=== PATIENT | male | born 1955 | race Caucasian/White ===

== ENCOUNTER 2016-11-23 11:09 | Inpatient (IN) | payer MEDICARE, MEDICAID ==
[~2016-11-23] VITALS: Ht 182.9 cm; Wt 75.3 kg
[2016-11-23] VITALS (13 sets, daily range): BP systolic 110–163; BP diastolic 69–82; PULSE 91–115; RESP 18–33; O2SAT 87–97
[~2016-11-23 11:09] MED LIST: ALBU8.5H2 INHALATION; ASPI-973 PO; ATOR20TA PO; CLOP75TA3 PO; IBUP200C PO; IPRA3AMP IH; METO25TA6 PO
--- NOTE | 2016-11-23 11:25 | ED.REPORT ---
HPI-Dyspnea / Wheezing Date of Service Nov 23, 2016 ED Provider: The patient is a 61 year old male with history of COPD who presents to the emergency department complaining of shortness of breath that has been worsening over the last 4 days. He has been using his breathing treatments at home about 4 times per day. He has also noticed a productive cough, chest pain after coughing, subjective fever, and a mild headache. He denies abdominal pain, nausea, vomiting or diarrhea. He had similar symptoms 2 years ago and required admission at that time. Nursing Notes Stated Complaint: CHEST PAIN/SHORTNESS OF BREATH Chief Complaint: Respiratory Complaints Nursing Notes Reviewed: Yes Allergies: Coded Allergies: No Known Allergies (Verified Allergy, Unknown, 05/25/16) Scheduled Aspirin (Aspirin) 81 Mg Tablet 81 MG PO DAILY Atorvastatin (Lipitor) 20 Mg Tablet 20 MG PO DAILY Clopidogrel Bisulfate (Plavix) 75 Mg Tablet 75 MG PO DAILY Ipratropium/Albuterol Sulfate (Iprat-Albut 0.5-3(2.5) mg/3 mL Inhalant Soln) 3 Ml Ampul.neb 3 ML IH Q6 Metoprolol Tartrate (Metoprolol Tartrate) 25 Mg Tablet 25 MG PO BID Scheduled PRN Albuterol HFA (Proair HFA) 8.5 Gm Hfa.aer.ad 2 PUFFS INHALATION Q4H PRN PRN prn Ibuprofen (Ibuprofen) 200 Mg Capsule 200 MG PO QID PRN PRN For Pain General Time Seen by MD: 11:25 Chief Complaint Shortness of breath Hx Obtained From: Patient Arrived By: Walk-in Sudden in Onset?: No Onset Occurred: 4 days ago Symptom Duration: Since onset Quality: Painful Severity: Current: Mild Severity: Maximum: Moderate Recent Healthcare: No recent hospitalization, Recent doctor visit Similar Sx Previous: Yes Past Medical History Past Medical History Prior thymoma, status post surgery chemotherapy radiation Peripheral vascular disease Reports: COPD Past Surgical History Median sternotomy scar secondary to thymoma not cardiac surgery Smoking History Current Every Day Smoker Social History Alcohol Use: "Social" Drug Use: Denies drug use Other Social History: Local resident Ambulatory Status Independent Review of Systems Constitutional: Denies: Chills, Fever Respiratory: Reports: Prod cough, clear, Shortness of breath Cardiovascular: Reports: Chest pain Complete sys rev & neg: except as marked. GI: Denies: Abdominal pain, Diarrhea, Nausea, Vomiting Neurologic: Reports: Headache Physical Exam Initial Vital Signs Vital Signs (First) Date Time Temp Pulse Resp B/P Pulse Ox O2 Delivery O2 Flow Rate FiO2 11/23/16 11:13 36.4 112 22 161/82 89 Room Air 11/23/16 11:41 4 Initial VS: Reviewed Head / Eyes: Atraumatic, Normocephalic, PERRL ENT: Mucous membranes moist, Conjunctiva normal, No scleral icterus Abdomen / GI: Soft, Non-tender, No guarding, No rebound, No distention Extremities: Vascular intact, Neuro intact, No swelling, No tenderness Skin: Warm, Dry, No cyanosis Neurologic: Alert, Oriented, Nonfocal Psychiatric: Mood/affect normal, Behavior normal, Normal thought content General/Constitutional: Awake, Alert, No acute distress, Cooperative Neck: Atraumatic, Supple, No meningismus, Full range of motion, No swelling, Non-tender, No masses Respiratory / Chest: Breath sounds = bilat, No respiratory distress Diminished Breath Sounds: Positive: Decreased bilateral Wheezing / Retractions: Positive: Wheezing moderate Midline sternotomy scar. Tachypneic. Cardiovascular: Heart rate NL, Regular rhythm, Heart sounds NL, No murmurs, No rubs, Peripheral circulation NL Interpretation & Diagnostics Lab Results Interpretation Result Diagram: 11/23/16 1130 11/23/16 1130 Test 11/23/16 11:30 White Blood Count 13.5th/mm3 (3.8-10.1) Red Blood Count 5.32mil/mm3 (4.40-5.80) Hemoglobin 15.1g/dL (13.8-17.2) Hematocrit 44.9% (41.0-50.0) Mean Corpuscular Volume 84.4fL (81-100) Mean Corpuscular Hemoglobin 28.4pg (27.0-35.0) Mean Corpuscular Hemoglobin Concent 33.6% (32.0-37.0) Red Cell Distribution Width 14.8% (12.3-15.4) Platelet Count 186bil/L (150-400) Neutrophils (%) (Auto) 86.4% (40-74) Lymphocytes (%) (Auto) 5.8% (14-46) Monocytes (%) (Auto) 7.4% (4-12) Eosinophils (%) (Auto) 0% (0-5) Basophils (%) (Auto) 0.1% (0-3) Sodium Level 132mEq/L (134-144) Potassium Level 4.5mEq/L (3.5-5.2) Chloride Level 93mEq/L (97-108) Carbon Dioxide Level 21mmol/L (18-29) Blood Urea Nitrogen 11mg/dL (8-27) Creatinine 0.58mg/dL (0.76-1.27) Estimat Glomerular Filtration Rate 151mL/min (>59) Glucose Level 116mg/dL (60-99) Lactic Acid Level 2.1mmol/L (0.4-2.0) Calcium Level 9.2mg/dL (8.5-10.1) Total Bilirubin 0.8mg/dL (0.0-1.2) Aspartate Amino Transf (AST/SGOT) 41U/L (0-50) Alanine Aminotransferase (ALT/SGPT) 20U/L (0-44) Alkaline Phosphatase 99U/L (25-160) Troponin T < 0.010ug/L (0.0-0.011) Pro-B-Type Natriuretic Peptide 3911pg/mL (0-210) Total Protein 7.6g/dL (6.4-8.4) Albumin 4.0g/dL (3.4-5.0) ECG Interpretation ECG Interpretation: Sinus tachycardia with a rate of 109 Time: 11:26 Interpreted by: ED physician X-Ray Chest Interpretation Chest Xray Interpretation: IMPRESSION: Interstitial prominence similar to prior examination and no definite acute cardiopulmonary process. Dictated by: Roger Howard RRA Interpreted: Mikayla Zambrano MD on 11/23/2016 at 11:46 View: Portable, 1 view Interpretation / Wet Read by: Interpret - Radiologist Re-Eval/Medical Decision Med Decision/Clinical Course COPD exacerbation with associated hypoxia. Patient will be admitted. Source of Hx: Old records Re-Evaluation/Progress #1: Time of Eval: 12:52 Re-Evaluation/Progress Note: He is not feeling much better at this time. Re-Evaluation/Progress #2: Time of Eval: 13:30 Re-Evaluation/Progress Note: Rechecked the patient. He is feeling better. He still has wheezing predominately in the left lung. Will road test and get room air O2 sat. Re-Evaluation/Progress #3: Time of Eval: 13:40 Re-Evaluation/Progress Note: The patient was 87 % on room air. Re-Evaluation/Progress #4: Time of Eval: 13:45 Re-Evaluation/Progress Note: Rechecked the patient. Discussed plan for admission. All questions were addressed. Consultation : Referral / Consult Name: Cathy Gonzales MD Consulted With: Hospitalist Requested Call at: 13:45 Call Returned at: 14:05 [facility]: Will see patient, Agrees with eval, Agrees with plan, Accepts admit Counseled Regarding: Diagnosis, Lab results, Need for admission Discharge & Departure Impression: Primary Impression: COPD with acute exacerbation Additional Impression: Acute respiratory failure with hypoxia Disposition: ADMITTED TO HOSPITAL Discharge Condition All VS Reviewed: Yes Condition: Stable Referrals: Reena Bender (PCP) Scribe Attestation Portions of this note were transcribed by Cesilia Timmons. I, Dr. Sahu personally performed the history, physical exam and medical decision-making; I reviewed and confirmed the accuracy of the information in the transcribed note. Signed by: Trini Jo, 11/23/2016 and 1415. copies to: Reena Bender Timothy S DO Nov 23, 2016 11:25 Cesilia Timmons Nov 23, 2016 11:31
[2016-11-23] MEDS ORDERED: MethylprednisoLONE Sodium Succinate 62.5 mg/mL 2 mL Inj IVPUSH ONE (11:30)
[2016-11-23] MEDS ORDERED: Albuterol-Ipratropium 3 mL Inhalation Solution NEB ONE ×2 (11:30→12:55)
[2016-11-23] MEDS ORDERED: 0.9% Sodium Chloride 1,000 ML IV ONE (11:30)
[2016-11-23 11:40] LABS: BASOPHILS % (AUTO) 0.1 % (0-3); EOSINOPHILS % (AUTO) 0 % (0-5); MONOCYTES % (AUTO) 7.4 % (4-12); Mean Corpuscular Hemoglobin 28.4 pg (27.0-35.0); Mean Corpuscular Volume 84.4 fL (81-100); NEUTROPHILS % (AUTO) 86.4 % (40-74); Platelet Count 186 bil/L (150-400)
--- NOTE | 2016-11-23 11:47 | DRSVH ---
PROCEDURE: X-RAY CHEST ONE VIEW, PORTABLE ([id number]) INDICATIONS: SHORTNESS OF BREATH , CHEST PAIN TECHNIQUE: One view of the chest was acquired. COMPARISON: [facility], CR, XR CHEST 2VW, 07/10/2015, 16:25. [facility], CR , CHEST 1VW (PORTABLE), 08/20/2014, 15:07. FINDINGS: Surgical changes and devices: Post median sternotomy. Lungs and pleura: No pleural effusions or pneumothorax. Lungs are clear and interstitium is promine nt. Mediastinum: Mediastinal contours appear normal. Heart size is normal. Bones and chest wall: No suspicious bony lesions. Overlying soft tissues appear unremarkable. IMPRESSION: Interstitial prominence similar to prior examination and no definite acute cardiopulmonar y process. Dictated by: Roger Howard [facility] Interpreted: Mikayla Zambrano MD on 11/23/2016 at 11:46 Transcribed by: XOCHITL on 11/23/2016 at 11:47 Approved by: Mikayla Zambrano MD, PhD on 11/23/2016 at 16:13
[2016-11-23 12:22] LABS: TROPONIN T < 0.010 ug/L (0.0-0.011)
[2016-11-23] MEDS ORDERED: Albuterol 2.5 mg/3 mL Inhalation Solution NEB ONE (12:55)
[2016-11-23] MEDS ORDERED: Ondansetron 2 mg/mL 2 mL Inj IVPUSH PRN (14:10)
[2016-11-23] MEDS ORDERED: Alum-Mag Hydrox-Simeth 30 mL Suspension PO PRN (14:10)
[2016-11-23] MEDS ORDERED: ATOR40TA69 PO (14:35)
[2016-11-23] MEDS ORDERED: levoFLOXacin Inj 750 MG in IV Premix 1 EACH IV ONE (15:15)
[2016-11-23] MEDS ORDERED: Albuterol 1.25 mg/3 mL Inhalation Solution NEB PRN (15:30)
--- NOTE | 2016-11-23 15:35 | PCM.HPMED ---
Subjective Date of Service Nov 23, 2016 Primary Provider: Admitting Physician: Cathy Gonzales MD Primary Care Physician: Reena Bender Attending Physician: Cathy Gonzales MD Chief Complaint: Difficulty breathing, cough and phlegm History of Present Illness: A 61-year-old male with history of CAD s/p stents on aspirin and Plavix, active smoker, COPD not on home O2, never intubated presented with 3-4 days all difficult to breathing, cough, sputum Patient stated that he is was hospitalized last week, stayed with her 1 day , 6 days ago. Patient did not particular feel that he was exposed to flu while he was in the hospital. About 4 days ago, patient started having mild cough, mild difficult to breathing, started using nebulizers and inhalers alternatively. However, symptoms have progressed to the point that sputum got thick and yellow, amount has increased. Patient was not able to breathe [place] with 5-6 times of neb tx at home, eating has decreased with poor appetite for the past 2 days. Patient decided to come to the hospital Patient denied fever, chills, abdominal pain, nausea, vomiting, diarrhea, sick contacts, recent travel, dysuria, frequent urination or urgency Emergency room, initial VS 162/82, 112,89% on RA up to low 90% on 3liters. neb tx three times, solu-medrol 125mg Review of Systems: Pertinent positives as noted in history of present illness. 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 Surgical History Chest surgery for thymoma resection in 2010 Family History Brother has diabetes Father had heart attack Social History Hx Alcohol Use: Yes (SELDOM) Hx Substance Use: No Hx Tobacco Use: Yes Smoking Status: Current Every Day Smoker (1/2 [id number]) Additional Information Lives with Exam Vital Signs Vital Sign - Last Date Time Temp Pulse Resp B/P Pulse Ox O2 Delivery O2 Flow Rate FiO2 11/23/16 13:47 106 32 155/73 91 Nasal Cannula 3 11/23/16 11:13 36.4 Exam NAD, comfortably laying down on the bed Speaks in full sentences, no accessory muscle use Intermittently coughing no JVD, MMM, no LAD RRR, nl s1, s2 no mrg poor air entry, mild diffuse crackles S,ND,NT,normoactive BS+ warm, no edema, pulses 2/2 Lab and Diagnostics Result Diagram: 11/23/16 1130 11/23/16 1130 X-Rays, CTs and MRIs Caution: Report not yet finalized and possibly incomplete! PROCEDURE: X-RAY CHEST ONE VIEW, PORTABLE ([id number]) INDICATIONS: SHORTNESS OF BREATH , CHEST PAIN TECHNIQUE: One view of the chest was acquired. COMPARISON: [facility], CR, XR CHEST 2VW, 07/10/2015, 16:25. [facility], CR, CHEST 1VW (PORTABLE), 08/20/2014, 15:07. FINDINGS: Surgical changes and devices: Post median sternotomy. Lungs and pleura: No pleural effusions or pneumothorax. Lungs are clear and interstitium is prominent. Mediastinum: Mediastinal contours appear normal. Heart size is normal. Bones and chest wall: No suspicious bony lesions. Overlying soft tissues appear unremarkable. IMPRESSION: Interstitial prominence similar to prior examination and no definite acute cardiopulmonary process. Dictated by: Roger Howard RRA Interpreted: Mikayla Zambrano MD on 11/23/2016 at 11:46 Transcribed by: XOCHITL on 11/23/2016 at 11:47 Assessment & Plan A 61-year-old male with history of CAD s/p stents on aspirin and Plavix, active smoker, COPD not on home O2, never intubated presented with 3-4 days of difficult to breathing, cough, sputum acute, active #dyspnea, productive cough, POA, likely COPD exacerbation in the setting of URI( RSV+ in PCR), CXR-no obvious infiltrates. no SIRS but has wbc+, elevated BNP- however given acute episode, less likely CHF exacerbation, although cannot exclude entirely -s/p solu-medrol 125mg, continue 80mg q8h today, change to prednisone tomorrow if pt remains stable -duoneb q4h, albuterol q2 prn. -start O2 supplement, target>95%, given no baseline hypercapnia, -ordered Levaquin 750mg qd for possible atypical PNA, consider to stop tomorrow -TTE ordered, Follow tomorrow chronic, stable #CAD s/p stents, no active chest pain, first trop negative. will get baseline EKG, continue asa/plavix, metoprolol 12.5mg bid #s/p thymoma resection, chemoradiation tx, seminoma s/p chemo, seemed in remission, dispo:Patient will be admitted with inpatient status with expectation of inpatient therapy for more than 2 midnights diet:cardiac dvt ppx:HSQ q12 Full Code Time spent 65min Cathy Gonzales MD Nov 23, 2016 15:35
[2016-11-23] MEDS: Albuterol-Ipratropium 3 mL Inhalation Solution NEB SCH ×3 (15:57→21:01)
--- NOTE | 2016-11-23 16:00 | NUR ---
Admission Patient positive for RSV, on droplet/contact precautions. Patient arrived to unit via gurney. Patient alert and oriented on 3 ltr NC. Patient short of breath at rest. Shortness of breath increasing with talking. Patient changing to 3 point position at times. Unable to lay flat. Reports increasing shortness of breath for several days, home "breathing treatments were not enough" and patient reporting his chest was "aching" at times with effort of breathing. Patient also reporting fever, and productive cough.
[2016-11-23] MEDS: 0.9% Sodium Chloride 1,000 ML IV SCH (16:49)
[2016-11-23] MEDS ORDERED: Influenza (Adult) Vaccine 0.5 mL Syringe IM ONE (17:30)
[2016-11-23 20:34] LABS: APPEARANCE,URINE CLEAR (CLEAR,HAZY); COLOR,URINE YELLOW (YELLOW); OCCULT BLOOD,URINE TRACE (NEGATIVE); UROBILINOGEN,URINE NORMAL (NORMAL)
[2016-11-23] MEDS: Fluticasone 100 mCg Inhaler INHALATION SCH (20:59)
[2016-11-23] MEDS: MethylprednisoLONE Sodium Succinate 62.5 mg/mL 2 mL Inj IVPUSH SCH (20:59)
[2016-11-23] MEDS: Heparin 5,000 Unit/mL Inj SUBQ SCH (21:01)
[2016-11-24] VITALS (14 sets, daily range): BP systolic 113–130; BP diastolic 65–75; PULSE 74–109; RESP 18–26; O2SAT 94–100
[2016-11-24] MEDS: Albuterol-Ipratropium 3 mL Inhalation Solution NEB SCH ×6 (00:39→21:05)
[2016-11-24] MEDS: 0.9% Sodium Chloride 1,000 ML IV SCH ×2 (01:41→12:26)
[2016-11-24] MEDS: MethylprednisoLONE Sodium Succinate 62.5 mg/mL 2 mL Inj IVPUSH SCH (05:07)
[2016-11-24 05:40] LABS: BASOPHILS % (AUTO) 0.1 % (0-3); EOSINOPHILS % (AUTO) 0 % (0-5); Mean Corpuscular Hemoglobin 28.4 pg (27.0-35.0); Mean Corpuscular Volume 85.6 fL (81-100); NEUTROPHILS % (AUTO) 93.2 % (40-74); Platelet Count 161 bil/L (150-400)
[2016-11-24 06:28] LABS: Phosphorus 2.9 mg/dL (2.5-4.9)
[2016-11-24] MEDS: levoFLOXacin Inj 750 MG in IV Premix 1 EACH IV SCH (10:08)
[2016-11-24] MEDS: Heparin 5,000 Unit/mL Inj SUBQ SCH ×2 (10:10→21:23)
[2016-11-24] MEDS: Fluticasone 100 mCg Inhaler INHALATION SCH ×2 (10:12→21:23)
[2016-11-24] MEDS: predniSONE 20 mg Tablet PO SCH (15:39)
--- NOTE | 2016-11-24 16:32 | NUR ---
Social Work: Initial Assessment Data: Pt is a 61 y/o male admitted for COPD exacerbation, hypoxia. Pt's PCP is Dr Bender, pt's insurance is Medicare. Readmit score is 2. SUPERVISOR HARDBOARD met with pt at bedside, role explained. Pt states that he lives in a single story home with his spouse where he uses no DME. Pt states his is his DPOA, SUPERVISOR HARDBOARD requested a copy for hospital. Pt states that he drives, has no HH or SNF history, no LTC or VA benefits, and is not a caregiver for pt. Pt is currently on O2, but is not on O2 at baseline. SUPERVISOR HARDBOARD will continue to follow for possible d/c planning needs. Assessment: Pt who is independent at baseline. Plan: Pt will d/c home via POV when medically stable. Pt is currently on O2, but is not on O2 at baseline. SUPERVISOR HARDBOARD will continue to follow for possible d/c planning needs. JOSEP Gonzalez Addendum: 11/24/16 at 1635 by ABRAHAM PEREZ SS Amended: Links added.
--- NOTE | 2016-11-24 17:01 | NUR ---
Respiratory: Patients lungs have expiratory wheezing . Patient is coughing off and on spasmodically with a small amount of creamy green sputum.He is on 3 liters of oxygen with 02 sats in the 97% range. Patient has been afebrile. He continues to be on droplet and contact precautions for positive RSV results.
--- NOTE | 2016-11-24 19:40 | PCM.PNMED ---
Subjective Date of Service Nov 24, 2016 Subjective No overnight events. Patient without new complaints today. He is not at baseline, still unable to take a full breath. He does not use O2 at baseline. Exam Vital Signs Vital Sign - Last Date Time Temp Pulse Resp B/P Pulse Ox O2 Delivery O2 Flow Rate FiO2 11/24/16 17:37 36.7 95 20 126/66 94 Nasal Cannula 3.00 Intake and Output 11/23/16 11/23/16 11/24/16 Cumulative From/Thru 15:00 23:00 07:00 11/23/16 11:13 - 11/24/16 05:15 Intake Total 1656 ml 600 ml 2256 ml Output Total 500 ml 500 ml Balance 1656 ml 100 ml 1756 ml Intake Oral 480 ml 600 ml 1080 ml IV Total 1176 ml 1176 ml Output Urine Total 500 ml 500 ml # Voids 0 0 # Bowel Movements 0 0 Exam Gen: Lying comfortably at 30degree head tilt HEENT: PERRLA, Anicteric sclerae, moist conjunctivae, and no lid lag. Neck: supple, no JVD Cardio: Regular rate and rhythm with no murmurs, rubs, or gallops appreciated Pulm: b/l air sound, no crackles, no rhonchi, Wheezes throughout. Abd: positive bowel tone. Soft, nontender, nondistended. Extremities: No clubbing, cyanosis, edema, or lymphadenopathy appreciated. Skin: Normal temperature, turgor, and texture; no rash, ulcers, or subcutaneous nodules appreciated. Neuro: Cranial nerves grossly intact. moving equally on all four limbs. Psyc: Normal mood and affect. AoX3 IVs and Medications IV Fluids NS 60cc/hr Lab and Diagnostics Result Diagram: 11/24/1631 11/24/1631 X-Rays, CTs and MRIs PROCEDURE: X-RAY CHEST ONE VIEW, PORTABLE IMPRESSION: Interstitial prominence similar to prior examination and no definite acute cardiopulmonary process. Dictated by: Roger DUPREE Interpreted: Mikayla Zambrano MD on 11/23/2016 at 11:46 Transcribed by: XOCHITL on 11/23/2016 at 11:47 Assessment & Plan Patient is a 61yom with history of CAD s/p stents on aspirin and Plavix, active smoker, COPD not on home O2, never intubated presented with 3-4 days of difficult to breathing, cough, sputum. Admitted for RSV, possible bacterial pneumonia. Present on admission, active Dyspnea -- Likely due to COPD exacerbation -- Some concerns for CHF due to BNP elevation -- Cardiac Echo pending COPD exacerbation -- This is due to RSV -- 5 days steroids started (11/23), currently prednisone 40mg -- Duoneb while awake and albuterol Q2H PRN Leukocytosis -- CRX unremarkable -- Likely due to RSV, some concerns for developing pneumonia -- repeat CRx with increase NC O2 -- consider D/c Levaquin 2/3 Chronic, stable Coronary Artery Disease, -- s/p stents -- no active chest pain, first trop negative -- continue asa/plavix, metoprolol 12.5mg bid Disposition: patient likely d/c tmrw should breathing improves. VTE Mechanical Devices: Intermittant Pneumatic CD Time spent 30 minutes Attending Statement I have seen and evaluated patient at bedside in addition to directly supervising care provided by resident physician. I agree with above documentation. Benigno Ordoñez DO Nov 24, 2016 19:40 Ramy Malave DO Nov 25, 2016 08:13
[2016-11-25] VITALS (8 sets, daily range): BP systolic 112–137; BP diastolic 62–71; PULSE 81–98; RESP 18–20; O2SAT 92–98
[2016-11-25] MEDS: 0.9% Sodium Chloride 1,000 ML IV SCH (00:02)
--- NOTE | 2016-11-25 03:26 | NUR ---
respiratory Pt denies SOB at rest; still having moderate SOB with exertion, resolves after resting in bed. SpO2 in high 90s on RA on 3L O2 via NC. tolerating diet w/o N/V. Needs assistance with the IV pole, otherwise independent to the BR; gait steady. denies pain or discomfort. uses call light appropriately; able to make needs known.
[2016-11-25 06:59] LABS: BASOPHILS % (AUTO) 0.1 % (0-3); EOSINOPHILS % (AUTO) 0 % (0-5); MONOCYTES % (AUTO) 10.2 % (4-12); Mean Corpuscular Hemoglobin 28.4 pg (27.0-35.0); Mean Corpuscular Volume 86.5 fL (81-100); NEUTROPHILS % (AUTO) 84.1 % (40-74); Platelet Count 162 bil/L (150-400)
[2016-11-25] MEDS: Albuterol-Ipratropium 3 mL Inhalation Solution NEB SCH ×2 (07:18→13:10)
[2016-11-25] MEDS: levoFLOXacin Inj 750 MG in IV Premix 1 EACH IV SCH (08:45)
[2016-11-25] MEDS: Heparin 5,000 Unit/mL Inj SUBQ SCH (08:46)
[2016-11-25] MEDS: predniSONE 20 mg Tablet PO SCH (08:47)
[2016-11-25] MEDS: Fluticasone 100 mCg Inhaler INHALATION SCH (08:47)
--- NOTE | 2016-11-25 09:16 | PCM.PNMED ---
Subjective Date of Service Nov 25, 2016 Subjective no new complaints gets sob ambulating to the bathroom. Can walk around [place] without sob at baseline O2 sat at 98% on 3L. Pt has copd though. Exam Vital Signs Vital Sign - Last Date Time Temp Pulse Resp B/P Pulse Ox O2 Delivery O2 Flow Rate FiO2 11/25/16 08:00 36.5 88 18 112/62 92 Room Air 11/25/16 07:18 1.00 Intake and Output 11/24/16 11/24/16 11/25/16 Cumulative From/Thru 15:00 23:00 07:00 11/23/16 11:13 - 11/25/16 06:12 Intake Total 1400 ml 1049 ml 4705 ml Output Total 850 ml 600 ml 1950 ml Balance 550 ml 449 ml 2755 ml Intake Oral 1400 ml 400 ml 2880 ml IV Total 649 ml 1825 ml Output Urine Total 850 ml 600 ml 1950 ml # Voids 2 2 # Bowel Movements 0 0 Exam wheezes b/l no crackles on lower bases Lab and Diagnostics Result Diagram: 11/25/16 0611 11/25/16 0611 X-Rays, CTs and MRIs PROCEDURE: X-RAY CHEST ONE VIEW, PORTABLE IMPRESSION: Interstitial prominence similar to prior examination and no definite acute cardiopulmonary process. Dictated by: Roger Howard RRA Interpreted: Mikayla Zambrano MD on 11/23/2016 at 11:46 Transcribed by: XOCHITL on 11/23/2016 at 11:47 Assessment & Plan Patient is a 61yom with history of CAD s/p stents on aspirin and Plavix, active smoker, COPD not on home O2, never intubated presented with 3-4 days of difficult to breathing, cough, sputum. Admitted for RSV, possible bacterial pneumonia. Present on admission, active Dyspnea -- Likely due to COPD exacerbation -- Some concerns for CHF due to BNP elevation -- Cardiac Echo pending COPD exacerbation -- This is due to RSV -- 5 days steroids started (11/23), currently prednisone 40mg -- Duoneb while awake and albuterol Q2H PRN Leukocytosis -- CRX unremarkable -- Likely due to RSV, some concerns for developing pneumonia -- repeat CRx with increase NC O2 -- consider D/c Levaquin 2/3 Chronic, stable Coronary Artery Disease, -- s/p stents -- no active chest pain, first trop negative -- continue asa/plavix, metoprolol 12.5mg bid Disposition: patient likely d/c tmrw should breathing improves. VTE Mechanical Devices: Intermittant Pneumatic CD Benigno Ordoñez DO Nov 25, 2016 09:16
[2016-11-25] MEDS ORDERED: predniSONE 20 mg Tablet PO ONE (11:40)
--- NOTE | 2016-11-25 13:52 | PCM.DIMED ---
Benigno Ordoñez DO 11/25/16 1352: Discharge Instructions Date of Service Nov 25, 2016 Dates of Hospitalization Nov 23, 2016 at 15:12 Discharge Diagnosis Discharge Diagnosis Upper respiratory track infection, present on admission, resolving COPD exacerbation, present on admission, resolving Leukocytosis, present on admission, stable Coronary Artery Disease, present on admission, stable Diet Heart Healthy Activity No restrictions Call your provider Shortness of breath, Excessive diarrhea Patient Instructions For your stay, you were hospitalized for upper respiratory infection from RSV. This is a viral infection. Virus has caused an exacerbation of your Centrilobular emphysema (COPD) You will need to take 2 more days of steroids --Prednisone 40mg daily for the next 2 days. Please follow-up with your primary care provider within 1wk of discharge. And I recommend that you get a Pulmonary Function test in 4-6week to evaluate your lung capacity. Seek care immediately if: * You are confused, dizzy, or feel faint. * Your arm or leg feels warm, tender, and painful. It may look swollen and red. * You feel lightheaded, short of breath, and have chest pain. * You cough up blood. Contact your healthcare provider if: * You have more shortness of breath than usual. * You need more medicine than usual to control your symptoms. * You are coughing or wheezing more than usual. * You are coughing up more mucus, or it is a different color or has a different odor. * You gain more than 3 pounds in a week. * You have a fever, a runny or stuffy nose, and a sore throat, or other cold or flu symptoms. * Your skin, lips, or nails start to turn blue. * You have swelling in your legs or ankles. * You are very tired or weak for more than a day. * You notice changes in your mood, or changes in your ability to think or concentrate. * You have questions or concerns about your condition or care. Follow-up Provider: Reena Bender Follow-up with PCP in: 1 week Ramy Malave DO 11/25/16 1511: Discharge Instructions Attending's Statement Read and agree Benigno Ordoñez DO Nov 25, 2016 13:52 Ramy Malave DO Nov 25, 2016 15:11
[2016-11-25] MEDS ORDERED: PRED-508 PO (13:54)
--- NOTE | 2016-11-25 15:28 | NUR ---
Social Work: Discharge Data: Pt is on day 2 of hospitalization. EMR reviewed. D/C orders are in. No d/c planning needed. SOLAR INSTALLATION TECHNICIAN will continue to follow if needs arise. Assessment: Pt who is independent at baseline. Plan: Pt will d/c home via POV today. No d/c planning needed. SOLAR INSTALLATION TECHNICIAN will continue to follow if needs arise. JOSEP Gonzalez
--- NOTE | 2016-11-25 15:57 | NUR ---
Discharge Pt d/c home with at 1530. Pt walked off unit with an aide, denying pain and or need for wc. IV d/c prior to leaving. All personal belongins left with pt. Discharge info discussed with pt, including need of completing PO prednisone. Print out of ECHO results provided to MD for review- d/t system being down and not cross over into computer. VSS.
--- NOTE | 2016-11-25 18:26 | PCM.DC.MED ---
Discharge Summary Date of Service Nov 25, 2016 Dates of Hospitalization Date of Hospital Admission Nov 23, 2016 at 15:12 Date of Discharge: Nov 25, 2016 Providers: Admitting Physician: Cathy Gonzales MD Primary Care Physician: Reena Bender Attending Physician: Cathy Gonzales MD Diagnosis at Time of Discharge Diagnosis at Time of Discharge Upper respiratory track infection, present on admission, resolving COPD exacerbation, present on admission, resolving Leukocytosis, present on admission, stable Coronary Artery Disease, present on admission, stable Procedures XRay, CTs & MRIs PROCEDURE: X-RAY CHEST ONE VIEW, PORTABLE IMPRESSION: Interstitial prominence similar to prior examination and no definite acute cardiopulmonary process. Dictated by: Roger Howard RRA Interpreted: Mikayla Zambrano MD on 11/23/2016 at 11:46 Transcribed by: XOCHITL on 11/23/2016 at 11:47 Brief History A 61-year-old male with history of CAD s/p stents on aspirin and Plavix, active smoker, COPD not on home O2, never intubated presented with 3-4 days all difficult to breathing, cough, sputum Patient stated that he is was hospitalized last week, stayed with her 1 day , 6 days ago. Patient did not particular feel that he was exposed to flu while he was in the hospital. About 4 days ago, patient started having mild cough, mild difficult to breathing, started using nebulizers and inhalers alternatively. However, symptoms have progressed to the point that sputum got thick and yellow, amount has increased. Patient was not able to breathe Gisselle with 5-6 times of neb tx at home, eating has decreased with poor appetite for the past 2 days. Patient decided to come to the hospital Patient denied fever, chills, abdominal pain, nausea, vomiting, diarrhea, sick contacts, recent travel, dysuria, frequent urination or urgency Emergency room, initial VS 162/82, 112,89% on RA up to low 90% on 3liters. neb tx three times, solu-medrol 125mg Hospital Course Patient is a 61yom with history of CAD s/p stents on aspirin and Plavix, active smoker, COPD not on home O2, never intubated presented with 3-4 days of difficult to breathing, cough, sputum. Admitted for COPD exacerbation, RSV, possible bacterial pneumonia. Received stressed dosed steroids, will continue for 2 more days to complete a 5 days course. Patient ambulated around the unit twice without O2 prior to discharge. Present on admission, active Dyspnea -- Likely due to COPD exacerbation -- Some concerns for CHF due to BNP elevation -- Cardiac Echo unremarkable. Official report pending COPD exacerbation -- This is due to RSV -- 5 days steroids started (11/23), currently prednisone 40mg -- Duoneb while awake and albuterol Q2H PRN Leukocytosis -- CRX unremarkable -- Likely due to RSV and steroid induced. -- consider D/c Levaquin (11/25) Chronic, stable Coronary Artery Disease, -- s/p stents -- no active chest pain, first trop negative -- continue asa/plavix, metoprolol 12.5mg bid Exam Vital Signs (Last) Date Time Temp Pulse Resp B/P Pulse Ox O2 Delivery O2 Flow Rate FiO2 11/25/16 14:47 36.9 84 20 136/68 93 Room Air 11/25/16 13:10 1.00 Exam Gen: Lying comfortably at 30degree head tilt HEENT: PERRLA, Anicteric sclerae, moist conjunctivae, and no lid lag. Neck: supple, no JVD Cardio: Regular rate and rhythm with no murmurs, rubs, or gallops appreciated Pulm: b/l air sound, no crackles, no rhonchi, mild Wheezes throughout. Abd: positive bowel tone. Soft, nontender, nondistended. Extremities: No clubbing, cyanosis, edema, or lymphadenopathy appreciated. Skin: Normal temperature, turgor, and texture; no rash, ulcers, or subcutaneous nodules appreciated. Neuro: Cranial nerves grossly intact. moving equally on all four limbs. Psyc: Normal mood and affect. AoX3 Test 11/23/16 11:30 11/23/16 20:13 11/24/16 05:31 11/25/16 06:11 Troponin T < 0.010ug/L (0.0-0.011) Pro-B-Type Natriuretic Peptide 3911pg/mL (0-210) Urine Color Yellow (YELLOW) Urine Appearance Clear (CLEAR,HAZY) Urine pH 6.0 (5.0-8.0) Urine Specific [place] 1.030 (1.003-1.035) Urine Protein Negativemg/dL (NEG,TRACE) Urine Glucose (UA) Negativemg/dL (NEGATIVE) Urine Ketones 15mg/dL (NEGATIVE) Urine Occult Blood Trace (NEGATIVE) Urine Nitrite Negative (NEGATIVE) Urine Bilirubin Negative (NEGATIVE) Urine Urobilinogen Normalmg/dL (NORMAL) Urine Leukocyte Esterase Negative (NEGATIVE) Urine RBC 0-2/hpf (0-2) Urine WBC 0-5/hpf (0-5) Urine Epithelial Cells None/hpf (NONE-MOD) Urine Crystals None seen (NONE SEEN) Urine Bacteria Few/hpf (NONE-FEW) Urine Hyaline Casts None/lpf (NONE) Urine Granular Casts None seen (NONE SEEN) Urine Waxy Casts None seen (NONE SEEN) Urine Red Blood Cell Casts None seen (NONE SEEN) Urine White Blood Cell Casts None seen (NONE SEEN) Urine Mucus Present (None Seen) Urine Trichomonas None seen (NONE SEEN) Urine Yeast None (NONE SEEN) Urinalysis Comment None Urine Culture Reflexed Not indicated Urine Legionella pneumophilia Ag Negative (Negative) Lactic Acid Level 0.7mmol/L (0.4-2.0) Phosphorus Level 2.9mg/dL (2.5-4.9) Magnesium Level 2.0mg/dL (1.6-2.6) Total Bilirubin 0.4mg/dL (0.0-1.2) Aspartate Amino Transf (AST/SGOT) 38U/L (0-50) Alanine Aminotransferase (ALT/SGPT) 19U/L (0-44) Alkaline Phosphatase 86U/L (25-160) Total Protein 6.4g/dL (6.4-8.4) Albumin 3.8g/dL (3.4-5.0) Procalcitonin 0.05ng/mL (0.00-0.08) White Blood Count 15.0th/mm3 (3.8-10.1) Red Blood Count 4.36mil/mm3 (4.40-5.80) Hemoglobin 12.4g/dL (13.8-17.2) Hematocrit 37.7% (41.0-50.0) Mean Corpuscular Volume 86.5fL (81-100) Mean Corpuscular Hemoglobin 28.4pg (27.0-35.0) Mean Corpuscular Hemoglobin Concent 32.9% (32.0-37.0) Red Cell Distribution Width 14.7% (12.3-15.4) Platelet Count 162bil/L (150-400) Neutrophils (%) (Auto) 84.1% (40-74) Lymphocytes (%) (Auto) 5.4% (14-46) Monocytes (%) (Auto) 10.2% (4-12) Eosinophils (%) (Auto) 0% (0-5) Basophils (%) (Auto) 0.1% (0-3) Sodium Level 140mEq/L (134-144) Potassium Level 4.7mEq/L (3.5-5.2) Chloride Level 102mEq/L (97-108) Carbon Dioxide Level 30mmol/L (18-29) Blood Urea Nitrogen 15mg/dL (8-27) Creatinine 0.48mg/dL (0.76-1.27) Estimat Glomerular Filtration Rate 188mL/min (>59) Glucose Level 125mg/dL (60-99) Calcium Level 8.6mg/dL (8.5-10.1) Discharge Medications Discharge Medications Aspirin (Aspirin) 81 Mg Tablet 81 MG PO DAILY (Reported) Atorvastatin Calcium (Atorvastatin Calcium) 40 Mg Tablet 40 MG PO HS (Reported) Clopidogrel Bisulfate (Plavix) 75 Mg Tablet 75 MG PO DAILY (Reported) Ipratropium/Albuterol Sulfate (Iprat-Albut 0.5-3(2.5) mg/3 mL Inhalant Soln) 3 Ml Ampul.neb 3 ML IH Q6 (Reported) Metoprolol Tartrate (Metoprolol Tartrate) 25 Mg Tablet 12.5 MG PO BID (Reported ) Prednisone (Deltasone) 20 Mg Tablet 40 MG PO DAILY Prescribed by: DELFINO JACOBS, DO As needed Albuterol HFA (Proair HFA) 8.5 Gm Hfa.aer.ad 2 PUFFS INHALATION Q4H PRN PRN prn (Reported) Ibuprofen (Ibuprofen) 200 Mg Capsule 400 MG PO BID PRN PRN For Pain (Reported) Followup Plan Discharge Diet: Heart Healthy Discharge Activity: No restrictions Patient Instructions For your stay, you were hospitalized for upper respiratory infection from RSV. This is a viral infection. Virus has caused an exacerbation of your Centrilobular emphysema (COPD) You will need to take 2 more days of steroids --Prednisone 40mg daily for the next 2 days. Please follow-up with your primary care provider within 1wk of discharge. And I recommend that you get a Pulmonary Function test in 4-6week to evaluate your lung capacity. Seek care immediately if: * You are confused, dizzy, or feel faint. * Your arm or leg feels warm, tender, and painful. It may look swollen and red. * You feel lightheaded, short of breath, and have chest pain. * You cough up blood. Contact your healthcare provider if: * You have more shortness of breath than usual. * You need more medicine than usual to control your symptoms. * You are coughing or wheezing more than usual. * You are coughing up more mucus, or it is a different color or has a different odor. * You gain more than 3 pounds in a week. * You have a fever, a runny or stuffy nose, and a sore throat, or other cold or flu symptoms. * Your skin, lips, or nails start to turn blue. * You have swelling in your legs or ankles. * You are very tired or weak for more than a day. * You notice changes in your mood, or changes in your ability to think or concentrate. * You have questions or concerns about your condition or care. Follow-up Provider: Reena Bender Follow-up with PCP in: 1 week Time spent 45 minutes Attending Statement I have seen and evaluated patient at bedside, in addition to directly supervising care provided by resident physician. I agree with above documentation. copies to: Reena Bender Phuc H DO Nov 25, 2016 18:26 Ramy Malave DO Nov 25, 2016 18:45
== END 2016-11-25 15:27 | disposition home or self-care (01) | DRG 190 ==
LOC: SED 11:09 → MPC 15:12
PROVIDERS: ADMIT Internal Medicine; ATTEND Internal Medicine
PROC: 3E0234Z Introduction of Serum, Toxoid and Vaccine into Muscle, Percutaneous Approach (ICD-10-PCS; principal; 2016-11-23)
DX: J44.1 Chronic obstructive pulmonary disease with (acute) exacerbation (principal); J18.9 Pneumonia, unspecified organism; J96.01 Acute respiratory failure with hypoxia; F17.210 Nicotine dependence, cigarettes, uncomplicated; I25.10 Atherosclerotic heart disease of native coronary artery without angina pectoris; J06.9 Acute upper respiratory infection, unspecified; B97.4 Respiratory syncytial virus as the cause of diseases classified elsewhere; Z23 Encounter for immunization

== ENCOUNTER → 2017-07-06 | Day surgery (SDC) | payer MEDICARE, MEDICAID ==
[2017-07-06] VITALS (9 sets, daily range): BP systolic 90–134; BP diastolic 43–65; PULSE 62–74; RESP 12–16; O2SAT 95–99
[~2017-07-06] VITALS: Ht 182.9 cm; Wt 72.5 kg
[~2017-07-06] MED LIST changes: +ACET-171 PO; +ALBU18HF INH; -ALBU8.5H2 INHALATION; -ATOR20TA PO; +Bupivacaine-MPF 0.5% 30 mL Inj INFILTRATE ONE; +CeFAZolin Inj 2 GM in IV Premix 1 EACH IV SCH; +Dexamethasone 4 mg/mL Inj IVPUSH PRN; +EPHEDrine Sulfate 50 mg/mL Inj IVPUSH PRN; +HYDROmorphone 1 mg/mL Inj IVPUSH PRN; +IBUP-1827 PO; +LIP40 PO; +Lactated Ringer's 1,000 ML IV ONE; +Lactated Ringer's 1,000 ML IV SCH; +Lactated Ringer's 500 ML IV PRN; +MAGN400C PO; +MULT-544 PO; +MetoCLOpramide 5 mg/mL 2 mL Inj IVPUSH PRN; +Ondansetron 2 mg/mL 2 mL Inj IVPUSH PRN; +Phenylephrine 10,000 mCg/mL Inj IVPUSH PRN; +fentaNYL-PF 50 mCg/mL 2 mL Inj IVPUSH PRN; +fentaNYL-PF 50 mCg/mL 2 mL Inj ONE
--- NOTE | 2017-07-06 14:05 | PCM.HPANE ---
Patient Data Date of Service: Jul 06, 2017 (1400) Surgeon Admitting Provider: Attending Provider:Adrianne Beard MD Primary Care Physician:Reena Bender Other Provider:Mey Garcia Anesthesia Reason for Visit Right Forearm Lipoma Ht/WT & BMI Height (Feet): 6 Height (Inches): 0.00 Weight (Kilograms): 72.500 Body Mass Index 21.00 Allergies Coded Allergies: No Known Allergies (Verified Allergy, Unknown, 07/04/17) Past Anesthesia History Anesthesia History: Denies:: Abnormal Airway, Anesthesia Reactions, Difficult Intubation, Fam Anesthesia Reaction, Fam Malignant Hypertherm, Malignant Hyperthermia Diabetes History Hx Diabetes?: No MRSA MRSA: No Medications Blood Thinner: Aspirin, Plavix (last ) Last Dose Blood Thinner: Jun 29, 2017 Hypertension Medication: Yes (metorpolol) Home Meds Incl Beta Paolo: Yes Date Beta Paolo Taken: Jul 06, 2017 Time Beta Paolo Taken: 0800 Reported Medications Magnesium Oxide (Magnesium)400 Mg Kxdwexu064 Mg PO DAILY 07/04/17 Multivitamin (Men's Multi-Vitamin)1 Each Tablet1 Each PO DAILY 07/04/17 Ipratropium/Albuterol Sulfate (Iprat-Albut 0.5-3(2.5) mg/3 mL Inhalant Soln)3 Ml Ampul.neb3 Ml IH Q6 Ref 0 07/04/17 Atorvastatin (Lipitor)40 Mg Cxdmgv70 Mg PO DAILY Ref 0 07/04/17 Metoprolol Tartrate 25 Mg Cpakxz29.5 Mg PO BID 30 Days Ref 0 07/04/17 Albuterol Sulfate (Ventolin HFA Inhaler)200 Puff/18 Gm Inhaler1 Puff INH Q4 PRN For Wheezing #1 INHALER Ref 0 07/04/17 Ibuprofen 200 Mg Huerxxe541 Mg PO QID PRN For Pain Ref 0 07/04/17 Aspirin 81 Mg Cceawr81 Mg PO DAILY Ref 0 07/04/17 Clopidogrel Bisulfate (Plavix)75 Mg Byxuzc60 Mg PO DAILY 30 Days Ref 0 07/04/17 Discontinued Reported Medications Atorvastatin Calcium 40 Mg Pbocgo25 Mg PO HS 11/23/16 Albuterol HFA (Proair HFA)8.5 Gm Hfa.aer.ad2 Puffs INHALATION Q4H PRN prn 05/20/16 Ipratropium/Albuterol Sulfate (Iprat-Albut 0.5-3(2.5) mg/3 mL Inhalant Soln)3 Ml Ampul.neb3 Ml IH Q6 05/20/16 Ibuprofen 200 Mg Dtjktfg501 Mg PO BID PRN For Pain 05/20/16 Aspirin 81 Mg Zifkdr93 Mg PO DAILY 05/20/16 Metoprolol Tartrate 25 Mg Jfthpc05.5 Mg PO BID 05/20/16 Clopidogrel Bisulfate (Plavix)75 Mg Uwwmrr71 Mg PO DAILY 05/20/16 Discontinued Scripts Prednisone (Deltasone)20 Mg Vgsozz55 Mg PO DAILY #2 TABLET Prov:Benigno Ordoñez H DO 11/25/16 History History of ENT Problems?: No HEENT History: Denies:: Abnormal Airway Cataracts Difficult Intubation Dysphagia Hearing Problem Sinus Problem TMJ Denture Type: None Teeth Condition: Within Normal Limits Hx of Heart Problems?: Yes Cardiovascular History: Positive for:: Cardiac Surgery ([place] 2013) Coronary Artery Disease Edema (intermittent) Hypertension Valvular Heart Disease (MILD AR,MOD TR) Denies:: AICD Atrial Fibrillation Chest Pain Congestive Heart Failure Heart Murmur Irregular Heartbeat Pacemaker Thrombophlebitis Hx of Respiratory Problem?: Yes Respiratory History: Positive for:: COPD Cough (PFT/PULM NOTES 12/2016-SEVERE OBSTRUC. DISEASE W/ AIR TRAPPING) Dyspnea Use of Inhalers / NEBS (DuoNeb 3-4 times a day, Albuterol once week) Denies:: Asthma Chest Surgery (cancer) Emphysema Hemoptysis Pneumonia Tuberculosis Use of C-PAP Machine Hx Neurologic Problems?: Yes Neurological History: Positive for:: Headaches Denies:: Alzheimer's Disease CVA Dementia Dizziness Parkinson's Disease Seizures TIA Hx of GI Problems?: No Hx of Problems?: No Genitourinary History: Denies:: HX of Hemodialysis Kidney Stones Urinary Tract Infection HX of Peritoneal Dialysis: No Male Hx: Positive for:: Testicular Surgery (testicle removed 2009) Denies:: Prostate Problems Scrotal Mass Skin History: Positive for:: History Skin Disorders? (bruising,) Denies:: Pressure Ulcers Hx Musculoskeletal Problems?: Yes Musculoskeletal History: Positive for:: Degenerative Joint Osteoarthritis Denies:: Back Injury Joint Replacement Musculoskeletal Trauma Hx of Psycho/Social Problems?: No Psycho Social History: Denies:: Anxiety Bipolar Disorder Hx Depression Suicide Attempt Hx Surgeries?: Yes (chest, testicle removal, femoral artery bypass, chest ports , tumor removal) Hx Any Other Health Problems?: Yes Other History: Positive for:: Cancer (seminoma, thymoma) Hospitalization Denies:: Endocrine Disease (C/OF COLD INTOLERANCE) Thyroid Disease History Blood Transfusions: Positive for:: Accept Blood Products? Denies:: Blood Transfuse Reaction Blood Transfusions Hx Diabetes: No Hx Alcohol Use: NoHx Substance Use: No Smoking Status: Current Every Day Smoker Have You Smoked inLast 12 mo: YesApprox How Many Cigarettes/day: 20 Stop/Bang S-Snoring: Do You Snore Loudly: Yes T-Tired: feel tired, fatigued: No O-Obsered: Observed not breath: Yes P-Blood Pressure: treated: Yes B- Body Mass Index > 35 kg/m2: No A- Age over 50: Yes N- Neck Large Circumference: No G- Gender Male: Yes MAUDE Total Score: 5 MAUDE Risk Assessment: High Risk, =/>3 Yes Risk Assessment Category Category 1A: Patient has history of documented sleep apnea, and HAS NOT received any narcotic, sedative or anesthesia administration during this stay. Category 1B: Patient has history of documented sleep apnea, and HAS received any narcotic , sedative or anesthesia administration during this stay Category 2: Patient has SUSPECTED Obstructive Sleep Apnea, and HAS received any narcotic , sedative or anesthesia administration during this stay. Category 3: Patient has SUSPECTED Obstructive Sleep Apnea and HAS NOT received narcotic, sedative or anesthesia administration during this stay. Category 4: Outpatient in Procedural Areas with known sleep apnea or who screen positive for High Risk via the STOP/BANG questionnaire. Exam Exam Vital Signs Vital Signs Date Time Temp Pulse Resp B/P Pulse Ox O2 Delivery O2 Flow Rate FiO2 07/06/17 13:02 36.6 74 14 130/60 97 Room Air General Appearance: Alert, Oriented X3 HEENT/AIRWAY: MP 2 Lungs: Clear to Auscultation Heart: Exam Unremarkable Meds/Labs/Diagnostics Admission Meds Current Medications Lactated Ringer's (Lr) 1,000 ml @ ud STK-MED ONCE IV Last administered on 07/06t 12:45; Start 07/06/17 at 12:45; Stop 07/06/17 at 12:46; Status DC Plan Impression Patient chart reviewed, patient interviewed and anesthestic plan with risks, benefits, and alternatives discussed, and informed consent obtained. NPO per Anesth. Guidelines: Yes ASA Physical Status: ASA3 Severe Disease Anesthetic Plan: GA Bene/Risks/Altern/Consents: Yes HP Complete Prior to Induction: Yes Dayron Boone MD Jul 06, 2017 14:05
--- NOTE | 2017-07-06 15:10 | PCM.SURGOP ---
Surgical Operative Report Date of Service: Jul 06, 2017 Pre Operative Diagnosis Subcutaneous mass of right proximal forearm Post Operative Diagnosis Chronic right olecranon bursitis Procedure: Excision of chronically inflamed right olecranon bursa, 4.1 x 3.2 x 2.0 cm Surgeon and Route Salesman: Surgeon: Adrianne Beard MD Assistants: Casimiro Tejada M.D., R3 Indication for Procedure This is a 62-year-old man who presented with a 4 cm subcutaneous mass of the posterior proximal or arm near the elbow. It was slowly increasing in size. It occasionally caused discomfort. Excision was offered due to the large size and associated pain. Findings: 4.1 cm cyst-like mass with a thick wall. When it was opened on the back table after excision, it contained hemorrhagic bloody fluid, overall findings were consistent with a chronically inflamed bursa. Procedure Details The patient was brought to the operating room and placed in supine position. Gen. anesthesia was induced. A warming blanket was placed. The right arm with draped across the right chest and secured. It was prepped and draped in sterile fashion. A surgical timeout was performed to confirm the correct patient, procedure, site, and side. A 4cm longitudinal incision was made over the mass in the posterior proximal forearm after instillation of Marcaine. Dissection proceeded with electrocautery close to the mass itself to avoid injury to any stranding structures. It was excised completely. It was opened on the back table and found to contain a very thick wall with hemorrhagic bloody fluid within, consistent with a chronically inflamed bursa. Additional local anesthetic was injected. Subcutaneous tissues were closed with interrupted 3-0 Vicryl stitches , and the skin was closed with a running 4-0 Monocryl stitch. A sterile dressing was placed. The patient was awakened from general anesthesia and taken to the postoperative care unit in good condition. Complications There were no periprocedural complications identified. Surgical Specimen Removed: Yes Specimen sent to Pathology: Yes Surgical Specimen description: Right proximal forearm subcutaneous mass Anesthetic Plan: GA Grafts, Implants: None Output, Estimated Blood Loss: 2 (ml) Blood Administration during jacobson: No Adrianne Beard MD Jul 06, 2017 15:10
--- NOTE | 2017-07-06 15:12 | PCM.DISURG ---
Surgical Discharge Instruction Date of Service Jul 06, 2017 Dates of Hospitalization Date of Hospital Admission Providers Admitting Physician: Primary Care Physician: Reena Bender Attending Physician: Adrianne Beard MD Discharge Diagnosis Post Operative diagnosis Chronic right olecranon bursitis Diet Discharge Diet: No restrictions Activity Discharge Activity-General: No restrictions Dressing and Incisional Care Dressing Care: Other (Dermabond dressing is waterproof and will flake off in 1- 2 weeks.) Hygiene: May shower Follow Up Plan Follow Up Plan No follow up needed. If any wound healing concerns, please call General Surgery clinic to be seen. Casimiro Tejada MD Jul 06, 2017 15:12
--- NOTE | 2017-07-06 15:17 | PCM.ANEP1 ---
Post Anesthesia PACU Phase 1 Assessment Vital Signs 36.3, 113/43, 66, 98%,. 18 Vital Signs Date Time Temp Pulse Resp B/P Pulse Ox O2 Delivery O2 Flow Rate FiO2 07/06/17 13:02 36.6 74 14 130/60 97 Room Air Anesthetic Administered: GA Level of Alertness: Awake, talking EDOUARD's with Equal Strength: Yes Pain: No Nausea or Vomiting: No CV Function & Hydration Stable: Yes Airway Device: none Oxygen Delivery: Simple Mask Lungs: Clear to Auscultation Dermatome Level: Full Sensation Summary uneventful GA PACU Phase 2 Assessment Complications: No Follow up Care: No Patient Instructions Provided: N/A Dayron Boone MD Jul 06, 2017 15:17
--- NOTE | 2017-07-10 16:46 | PATH ---
SURGICAL PATHOLOGY Attending Physician:Adrianne Beard MD CASE STATUS: Signed Out PATIENT NAME: MYRIAM CHAHAL PID: [id number] : 1955 DATE COLLECTED:07/06/2017 00:00 SPECIMEN: Mass, NOS CLINICAL HISTORY: 1). RIGHT ARM MASS, 4.1 X 3.2 X 2 FINAL DIAGNOSIS: 1.RIGHT ARM MASS, 4.1 X 3.2 X 2.0 CM (EXCISION): - SYNOVIAL-LINED CYST WITH UNDERLYING GRANULATION TISSUE AND MILD ACTIVE AND CHRONIC INFLAMMATION. ICD10 M70.11 GROSS DESCRIPTION: The specimen is received in formalin, labeled with the patient's name, sublabeled as right arm mass, and consists of an opened santos and blanco rubbery cystic mass (3.8 x 2.9 x 1.0 cm). The cut surface is multilocular. The lining is smooth and flat with no excrescences identified. The wall is up to 0.6 cm thick. Ink code: blue-resection margin. Section code: (A, B) mass, serially sectioned, food service representative. 07/08/17 MICRO DESCRIPTION: See diagnosis. ICD-9 CODES: CPT CODES: 1: 79667 Electronically Signed Out Kennedy Garrido MD [facility] Pathology [facility] [address], [place] [address] Technical component performed at [facility], [facility] [address], [place], [address]
== END | disposition home or self-care (01) ==
LOC: SAS 12:34
PROVIDERS: ATTEND Surgery
DX: M70.21 Olecranon bursitis, right elbow (principal); J44.9 Chronic obstructive pulmonary disease, unspecified; I73.9 Peripheral vascular disease, unspecified; E78.5 Hyperlipidemia, unspecified; I25.10 Atherosclerotic heart disease of native coronary artery without angina pectoris; F17.210 Nicotine dependence, cigarettes, uncomplicated; Z95.5 Presence of coronary angioplasty implant and graft; Z79.02 Long term (current) use of antithrombotics/antiplatelets; Z79.82 Long term (current) use of aspirin; Z79.51 Long term (current) use of inhaled steroids
CPT/HCPCS: 24105; 88305; J0690; J2250; J3010; J7120